=== PATIENT | female | born 1945 ===

== ENCOUNTER 2023-10-11 10:04 | Outpatient (CLI) | payer OTHER, SELFPAY ==
--- NOTE | ~2023-10-11 | MR_ITS ---
EXAMINATION: MR shoulder RT wo con DATE: 10/11/2023 11:16 INDICATION: Chronic right shoulder pain TECHNIQUE: Magnetic resonance imaging (MRI) of the right shoulder was performed without intravenous c ontrast. Sequences included axial PD-weighted FS FSE, coronal oblique PD-weighted FS FSE, coronal obl ique T2-weighted FS FSE, sagittal PD-weighted FS FSE, and sagittal T1-weighted SE. COMPARISON: None. FINDINGS: Coracoacromial arch: The acromion undersurface is curved in morphology (type II). The coracoacromial ligament is normal. M oderate acromioclavicular osteoarthritis. Rotator cuff: There is severe tendinopathy along the articular side of the infraspinatus tendon and gallbladder was without evident tear. There is a small multilobulated ganglion cyst extending approximately 2 cm med ial collateral and 8 x 5 mm in maximal transaxial dimensions along the bursal side of the infraspinat us myotendinous junction. There is mild supraspinatus and subscapularis tendinopathy without tear. Th e teres minor tendon is normal. Normal rotator cuff muscle bulk and signal. Biceps tendon, glenoid labrum and glenohumeral cartilage: Long head of the biceps tendon is normal. Diffuse tearing of the glenoid labrum. There are a few asso ciated small para labral cysts along the anteroinferior rim of the glenoid. There is extensive full/n ear full-thickness chondral ulceration throughout much of the glenoid and a humeral head with with as sociated subarticular cystlike changes at the superior and anterior glenoid. Mild cortical irregulari ty and edema-like subarticular signal change. At the superomedial aspect of the humeral head. Fluid: Moderate-sized glenohumeral joint effusion with proportional extension of fluid into the long head bi ceps tendon sheath. Mild synovitis at the axillary recess. No loose osteochondral bodies. No loose os teochondral bodies. Mild increased fluid signal in the subacromial/subdeltoid bursa consistent with m ild bursitis. Bones: Bone alignment is normal. No fracture or pathologic marrow replacing process. IMPRESSION: 1. Severe right glenohumeral osteoarthritis with diffuse tearing of the acetabular labrum. 2. Rotator cuff tendinopathy, severe along the articular side of the infraspinatus tendon without dis crete tear. 3. Moderate acromioclavicular osteoarthritis. Reviewed, dictated and finalized at location A. IMPRESSION: 1. Severe right glenohumeral osteoarthritis with diffuse tearing of the acetabu lar labrum. 2. Rotator cuff tendinopathy, severe along the articular side of the infraspina tus tendon without discrete tear. 3. Moderate acromioclavicular osteoarthritis.
== END 2023-10-11 10:05 ==
PROVIDERS: PCP Physician Assistant; Visit Provider Physician Assistant
DX: M19.011 Primary osteoarthritis, right shoulder (principal); M75.31 Calcific tendinitis of right shoulder; G89.29 Other chronic pain; S73.191A Other sprain of right hip, initial encounter; X58.XXXA Exposure to other specified factors, initial encounter
CPT/HCPCS: 73221